=== PATIENT | male | born 1975 | race Caucasian/White ===

== ENCOUNTER 2023-10-21 06:21 | Inpatient (IN) | payer OTHER, MEDICAID ==
[~2023-10-21] VITALS: Ht 167.6 cm; Wt 166.9 kg
[2023-10-21 07:07] LABS: BASOPHILS % 1.5 % (0.0-2.0); EOSINOPHILS % 1.1 % (0.0-5.0); HEMATOCRIT. 35.9 % (42.0-52.0); LYMPHOCYTES % 18.2 % (20.0-50.0); MEAN CORPUSCULAR HEMOGLOBIN 21.1 pg (28.0-32.0); MEAN CORPUSCULAR HGB CONC 30.7 g/dL (31.0-37.0); MEAN CORPUSCULAR VOLUME 68.8 fL (80.0-94.0); MEAN PLATELET VOLUME 8.6 fl (7.4-10.4); MONOCYTES % 9.8 % (2.0-8.0); NEUTROPHILS % 69.4 % (40.0-76.0); PLATELET 352 x1000/uL (130-400); RED BLOOD CELL COUNT 5.21 mill/uL (4.7-6.1); RED CELL DISTRIBUTION WIDTH 20.1 % (11.6-14.6); WHITE BLOOD COUNT 7.7 x1000/uL (4.5-11.0)
[2023-10-21 07:43] LABS: ADD RBC MORPHOLOGY YES; DIFFERENTIAL COMMENT 1
[2023-10-21 10:14] LABS: CHLORIDE 104 mEq/L (98-107); POTASSIUM 3.7 mEq/L (3.5-5.1); SODIUM 139 mEq/L (136-145)
[2023-10-21 10:15] LABS: ANISOCYTOSIS 2+; CALCIUM 9.2 mg/dL (8.7-10.4); CARBON DIOXIDE 23 mEq/L (21-32); CREATININE 0.7 mg/dL (0.6-1.3); GLUCOSE 103 mg/dL (70-105); MICROCYTOSIS 3+; PLATELET ESTIMATE NORMAL; PROTEIN TOTAL 6.9 g/dL (6.0-8.3); UREA NITROGEN BLOOD 8 mg/dL (9-23)
[2023-10-21 10:16] LABS: ALBUMIN 4.3 g/dL (3.2-4.8); BILIRUBIN TOTAL 0.5 mg/dL (0.1-1.0)
[2023-10-21 10:17] LABS: ALANINE AMINOTRANSFERASE 21 IU/L (10-49); ASPARTATE AMINOTRANSFERASE 26 IU/L (<34)
[2023-10-21 10:27] LABS: BG BASE EXCESS -1.4 mmol/L (-2.0-2.0); BG CARBOXYHEMOGLOBIN 0.7 % (0.5-1.5); BG DEOXYHEMOGLOBIN 1.6 % (0.0-5.0); BG HCO3 ACT 27.3 mmol/L (22.0-26.0); BG METHEMOGLOBIN 0.3 % (0.0-1.5); BG OXYGEN SATURATION 98.4 % (92.0-98.5); BG OXYHEMOGLOBIN 97.4 % (94.0-97.0); BG PCO2 65.9 mmHg (35.0-45.0); BG PH 7.235 (7.350-7.450); BG PO2 129.5 mmHg (75.0-100.0); BG SAMPLE SITE RIGHT RADIAL; BG TOTAL HEMOGLOBIN 12.2 g/dL (12.0-18.0)
[2023-10-21 10:37] LABS: BG FLOW(L/min) 5 L/min; BG FRACTION INSPIRED OXYGEN 40; BG VENT MODE NASAL CANULA
[2023-10-21 11:20] LABS: TROPONIN I HIGH SENSITIVITY 14 ng/L (3.0-53)
[2023-10-21 11:25] VITALS: RESP 25
[2023-10-21] MEDS ORDERED: NITROGLYCERIN 0.4MG TABLET SL SL PRN (11:45)
[2023-10-21] MEDS ORDERED: ONDANSETRON HCL 4MG/2ML INJ IV PRN (11:45)
[2023-10-21] MEDS ORDERED: GUAIFENESIN 200MG/10ML SUGAR FREE UDC PO PRN (11:45)
[2023-10-21] MEDS ORDERED: ACETAMINOPHEN 650MG SUPP PR PRN ×2 (11:45)
[2023-10-21] MEDS ORDERED: IPRATROPIUM/ALBUTEROL 0.5-3(2.5)MG/3ML NEB HHN PRN (11:45)
[2023-10-21] MEDS ORDERED: MAGNESIUM/ALUMINUM HYDROXIDE/SIMETHICONE 30ML UDC PO PRN (11:45)
[2023-10-21] MEDS ORDERED: DOCUSATE SODIUM 100MG CAPSULE PO PRN (11:45)
[2023-10-21 12:27] LABS: *AMPHETAMINES SCREEN URINE PRESUMPTIVE POSITIVE (NEGATIVE); *BARBITURATES SCREEN URINE NEGATIVE (NEGATIVE); *BENZODIAZEPINES SCREEN URINE NEGATIVE (NEGATIVE); *COCAINE SCREEN URINE NEGATIVE (NEGATIVE); CANNABINOID URINE SCREEN NEGATIVE (NEGATIVE); ECSTASY MDMA SCREEN URINE CONF.TEST INDICATED (NEGATIVE); METHADONE URINE SCREEN Neg (NEGATIVE); OPIATES URINE SCREEN NEGATIVE (NEGATIVE); PHENCYCLIDINE URINE SCREEN NEGATIVE (NEGATIVE)
[2023-10-21 12:33] LABS: PHOSPHORUS 4.3 mg/dL (2.5-4.9)
[2023-10-21 14:09] LABS: BG BASE EXCESS -0.3 mmol/L (-2.0-2.0); BG CARBOXYHEMOGLOBIN 0.9 % (0.5-1.5); BG FRACTION INSPIRED OXYGEN 21; BG HCO3 ACT 26.4 mmol/L (22.0-26.0); BG METHEMOGLOBIN 0.1 % (0.0-1.5); BG OXYGEN SATURATION 94.9 % (92.0-98.5); BG PCO2 51.6 mmHg (35.0-45.0); BG PH 7.327 (7.350-7.450); BG PO2 79.6 mmHg (75.0-100.0); BG SAMPLE SITE RIGHT RADIAL; BG TOTAL HEMOGLOBIN 13.8 g/dL (12.0-18.0); BG VENT MODE ROOM AIR
[2023-10-21] MEDS: CLONIDINE 0.1MG TABLET PO PRN (15:37)
[2023-10-21 18:21] VITALS: BP 136/91; PULSE 87; RESP 20; TEMP 97.9
[2023-10-21 20:00] VITALS: BP 133/64; PULSE 91; RESP 20; TEMP 96.1
[2023-10-22] VITALS (9 sets, daily range): BP systolic 116–176; BP diastolic 70–101; PULSE 72–82; RESP 18–28; TEMP 97.1–98.1
[2023-10-22 07:05] LABS: HEMATOCRIT 37.4 % (42.0-52.0); HEMOGLOBIN 11.4 g/dL (14.0-18.0); MEAN CORPUSCULAR HEMOGLOBIN 20.9 pg (28.0-32.0); MEAN CORPUSCULAR HGB CONC 30.5 g/dL (31.0-37.0); MEAN CORPUSCULAR VOLUME 68.5 fL (80.0-94.0); PLATELET 311 x1000/uL (130-400); RED BLOOD CELL COUNT 5.47 mill/uL (4.7-6.1); RED CELL DISTRIBUTION WIDTH 19.7 % (11.6-14.6); WHITE BLOOD COUNT 7.6 x1000/uL (4.5-11.0)
[2023-10-22 07:35] LABS: CALCIUM 8.7 mg/dL (8.7-10.4); CARBON DIOXIDE 28 mEq/L (21-32); CHLORIDE 102 mEq/L (98-107); CHOLESTEROL 115 mg/dL (<200); CREATININE 0.5 mg/dL (0.6-1.3); GLUCOSE 94 mg/dL (70-105); HDL CHOLESTEROL 41 mg/dL (>55); IRON 31 ug/dL (65-175); LDL CHOLESTEROL 68 mg/dL (5-100); POTASSIUM 4.1 mEq/L (3.5-5.1); SODIUM 136 mEq/L (136-145); T4 FREE 1.18 ng/dL (0.89-1.76); THYROID STIMULATING HORMONE 0.88 uIU/mL (0.55-4.78); TOTAL IRON BINDING CAPACITY 211 ug/dl (250-425); TRIGLYCERIDE 53 mg/dL (0-150); UREA NITROGEN BLOOD 6 mg/dL (9-23)
[2023-10-22 15:20] LABS: CLARITY URINE TURBID (CLEAR); COLOR URINE DARK YELLOW (YELLOW); GLUCOSE URINE NEGATIVE (NEGATIVE); KETONES URINE 2+ (NEGATIVE); LEUKOCYTE ESTERASE URINE TRACE (NEGATIVE); NITRITE URINE NEGATIVE (NEGATIVE); OCCULT BLOOD URINE 2+ (NEGATIVE); PROTEIN URINE NEGATIVE (NEGATIVE); SPECIFIC GRAVITY URINE 1.023 (1.005-1.030)
[2023-10-22 15:48] LABS: BACTERIA URINE 4+; SQUAMOUS EPITHELIAL CELL URINE FEW /lpf (RARE/1+)
[2023-10-22 15:49] LABS: CALCIUM OXALATE CRYSTALS URINE 1+ /lpf; WBC URINE 0-2 /hpf (0-2)
[2023-10-22] MEDS: MONTELUKAST SODIUM 10MG TABLET PO SCH (17:25)
[2023-10-22] MEDS: ENOXAPARIN 40MG/0.4ML SYR SUBCUT SCH (17:25)
[2023-10-22] MEDS ORDERED: POLYVINYL ALCOHOL OPHTH DROPS 15ML BOTHEYE PRN (20:45)
[2023-10-22] MEDS: FAMOTIDINE 20MG TABLET PO SCH (21:06)
[2023-10-22] MEDS: MELATONIN 3MG TABLET PO NR (21:06)
[2023-10-22] MEDS: BUDESONIDE 0.5MG/2ML NEB HHN SCH (21:28)
[2023-10-23] VITALS: BP 138/85; PULSE 83; RESP 22; TEMP 97.3
[2023-10-23 04:00] VITALS: BP 145/82; PULSE 79; RESP 22; TEMP 97.3
[2023-10-23 08:00] VITALS: BP 125/81; PULSE 69; RESP 19; TEMP 98.4
[2023-10-23 10:28] LABS: BG BASE EXCESS 0.8 mmol/L (-2.0-2.0); BG CARBOXYHEMOGLOBIN 0.1 % (0.5-1.5); BG DEOXYHEMOGLOBIN 6.9 % (0.0-5.0); BG FRACTION INSPIRED OXYGEN 21; BG HCO3 ACT 26.8 mmol/L (22.0-26.0); BG METHEMOGLOBIN 0.2 % (0.0-1.5); BG OXYGEN SATURATION 93.1 % (92.0-98.5); BG OXYHEMOGLOBIN 92.8 % (94.0-97.0); BG PCO2 48.3 mmHg (35.0-45.0); BG PH 7.362 (7.350-7.450); BG PO2 69.3 mmHg (75.0-100.0); BG SAMPLE SITE RIGHT RADIAL; BG TOTAL HEMOGLOBIN 12.9 g/dL (12.0-18.0); BG VENT MODE ROOM AIR
[2023-10-23] MEDS ORDERED: TRAZODONE HCL 50MG TABLET PO PRN (11:15)
[2023-10-23 12:00] VITALS: BP 113/73; PULSE 74; RESP 19; TEMP 99.4
[2023-10-23] MEDS: SERTRALINE HCL 50MG TABLET PO SCH (12:26)
[2023-10-23] MEDS ORDERED: SERT50TA PO (12:33)
[2023-10-23] MEDS ORDERED: MONT-46 PO (12:33)
[2023-10-23] MEDS ORDERED: TRAZ-251 PO (12:33)
[2023-10-23] MEDS ORDERED: PULM50 HHN (12:33)
[2023-10-23 15:46] VITALS: BP 113/73; PULSE 74; TEMP 99.2; O2SAT 100
[2023-10-24] MEDS ORDERED: SERTRALINE HCL 25MG TABLET PO SCH (09:00)
== END 2023-10-23 16:10 | disposition home or self-care (01) | DRG 313 ==
LOC: ER 06:21 → EDBD 06:21 → 7EST 11:08 → EDBEDREQTM 11:10 → EDBEDREQSVC 11:10 → EDBEDREQ 11:10 → EDBEDREQSVC 16:25 → ER 16:51
PROVIDERS: ADMIT Hospitalist; ATTEND Hospitalist
PROC: 5A09357 Assistance with Respiratory Ventilation, Less than 24 Consecutive Hours, Continuous Positive Airway Pressure (ICD-10-PCS; principal; 2023-10-21)
PROC: 5A09357 Assistance with Respiratory Ventilation, Less than 24 Consecutive Hours, Continuous Positive Airway Pressure (ICD-10-PCS; 2023-10-22)
DX: R07.9 Chest pain, unspecified (principal); G93.41 Metabolic encephalopathy; J96.90 Respiratory failure, unspecified, unspecified whether with hypoxia or hypercapnia; E87.29 Other acidosis; Z68.43 Body mass index [BMI] 50.0-59.9, adult; E66.01 Morbid (severe) obesity due to excess calories; F17.200 Nicotine dependence, unspecified, uncomplicated; G47.10 Hypersomnia, unspecified; G47.33 Obstructive sleep apnea (adult) (pediatric); D50.9 Iron deficiency anemia, unspecified; I45.9 Conduction disorder, unspecified; G51.0 Bell's palsy; J45.909 Unspecified asthma, uncomplicated; I51.7 Cardiomegaly; K59.00 Constipation, unspecified; F43.10 Post-traumatic stress disorder, unspecified; G47.00 Insomnia, unspecified; F32.9 Major depressive disorder, single episode, unspecified; Z82.49 Family history of ischemic heart disease and other diseases of the circulatory system
CPT/HCPCS: 36415; 36600; 71045; 80048; 80053; 80061; 80305; 81003; 82375; 82728; 82805; 83540; 83550; 83735; 83880; 84100; 84439; 84443; 84484; 85025; 85027; 93005; 93306; 94660; 99291; J1650; J7626